=== PATIENT | female | born 1985 | race Caucasian/White ===

== ENCOUNTER 2018-04-24 19:25 | Emergency (ER) | payer OTHER ==
[~2018-04-24] VITALS: Ht 170.2 cm; Wt 106.6 kg
[2018-04-24 19:25] VITALS: BP 136/90
[2018-04-24 21:25] LABS: BASOPHILS % (AUTO) 0.3 % (0.0-2.0); EOSINOPHILS # (AUTO) 0.1 K/uL (0-0.4); EOSINOPHILS % (AUTO) 0.6 % (0.0-4.0); HEMATOCRIT 40.5 % (36-48); HEMOGLOBIN 12.9 g/dL (12.0-16.0); LYMPHOCYTES # (AUTO) 1.2 K/uL (2.5-16.5); MEAN CORPUSCULAR HEMOGLOBIN 27 pg (27-31); MEAN CORPUSCULAR HGB CONC 32 g/dL (33-37); MEAN CORPUSCULAR VOLUME 84.5 fL (80-94); MONOCYTES # (AUTO) 0.7 K/uL (0.8-1.0); MONOCYTES % (AUTO) 6.7 % (1.7-9.3); NEUTROPHILS # (AUTO) 9.1 K/uL (1.8-7.7); NEUTROPHILS % (AUTO) 81.4 % (42.2-75.2); PLATELET COUNT (AUTO) 255 K/uL (140-450); RED BLOOD CELL COUNT(AUTO) 4.79 MIL/uL (4.20-5.40); RED CELL DISTRIBUTION WIDTH 15.8 % (11.6-13.7); WHITE BLOOD COUNT (AUTO) 11.2 K/uL (4.8-10.8)
[2018-04-24 21:25] LABS: APPEARANCE,URINE CLEAR (CLEAR); BILIRUBIN,URINE NEGATIVE (NEGATIVE); BLOOD, URINE NEGATIVE (NEGATIVE); COLOR,URINE YELLOW (YELLOW); LEUKOCYTE ESTERASE ,URINE NEGATIVE (NEGATIVE); NITRITE, URINE NEGATIVE (NEGATIVE); UGLUCOSE NEGATIVE (NEGATIVE)
[2018-04-24 21:40] LABS: ANION GAP 9.8 (8-16); CARBON DIOXIDE 29.6 mmol/L (21-32); POTASSIUM 3.4 mmol/L (3.5-5.1)
[2018-04-24 21:46] LABS: ALBUMIN 3.8 g/dL (3.4-5.0); TOTAL BILIRUBIN 0.5 mg/dL (0.0-1.0)
[2018-04-24 22:31] VITALS: BP 136/81
== END 2018-04-24 22:31 | disposition home or self-care (01) ==
LOC: MED 19:25
DX: R10.11 Right upper quadrant pain (principal); R06.02 Shortness of breath; Z88.1 Allergy status to other antibiotic agents
CPT/HCPCS: 36415; 71045; 80053; 81003; 81025; 83690; 84484; 85025; 93005; 99285; Q0092

== ENCOUNTER 2018-05-10 19:55 | Inpatient (IN) | payer OTHER ==
[~2018-05-10] VITALS: Ht 170.2 cm; Wt 104.3 kg
[2018-05-10] MEDS ORDERED: NACL 0.9% 1,000 ML IV ONE (19:56)
[2018-05-10 19:57] VITALS: BP 128/79
[2018-05-10] MEDS ORDERED: ONDANSETRON 4 MG/2 ML VIAL IVP ONE (20:00)
[2018-05-10] MEDS ORDERED: MORPHINE SULFATE 4 MG/ML SYR IVP ONE (20:00)
--- NOTE | 2018-05-10 20:02 | NUR ---
Patient ambulated to bed 2 after providing a urine specimen. RN evaluating patient at bedside.
--- NOTE | 2018-05-10 20:05 | NUR ---
33/F CAME IN ED, C/O 10/27 SHARP RUQ PAIN, RADIATING TO BACK, X2 DAYS, INTERMITTENTLY X2 WEEKS. PT CAME IN ER THIS MORNING, WAS CALLED TO COME BACK. ABD SOFT ROUND TENDER TO TOUCH. PT DENIES FEVER N/V/D, DYSURIA. PT DENIES MED HX, RX. ER MD AT BEDSIDE TO SPEAK WITH PT.
--- NOTE | 2018-05-10 20:15 | NUR ---
US TECH AT BEDSIDE
[2018-05-10 20:21] LABS: BILIRUBIN,URINE NEGATIVE (NEGATIVE); BLOOD, URINE TRACE-I (NEGATIVE); COLOR,URINE YELLOW (YELLOW); LEUKOCYTE ESTERASE ,URINE 1+ (NEGATIVE); NITRITE, URINE NEGATIVE (NEGATIVE); UGLUCOSE NEGATIVE (NEGATIVE)
[2018-05-10 20:22] LABS: APPEARANCE,URINE HAZY (CLEAR)
[2018-05-10 20:25] LABS: HEMATOCRIT 44.3 % (36-48); HEMOGLOBIN 14.4 g/dL (12.0-16.0); MEAN CORPUSCULAR HEMOGLOBIN 27 pg (27-31); MEAN CORPUSCULAR HGB CONC 32 g/dL (33-37); MEAN CORPUSCULAR VOLUME 84.1 fL (80-94); RED BLOOD CELL COUNT(AUTO) 5.27 MIL/uL (4.20-5.40)
[2018-05-10 20:25] LABS: RBC,URINE 0-5 (RARE) /HPF (0-5); WBC,URINE 6-15 (FEW) /HPF (0-5)
[2018-05-10 20:26] LABS: PLATELET COUNT (AUTO) 306 K/uL (140-450); RED CELL DISTRIBUTION WIDTH 14.3 % (11.6-13.7)
[2018-05-10 20:28] LABS: BASOPHILS # (AUTO) 0.3 K/uL (0.00-0.22); EOSINOPHILS # (AUTO) 0.1 K/uL (0-0.4); MONOCYTES # (AUTO) 0.8 K/uL (0.8-1.0); NEUTROPHILS # (AUTO) 4.8 K/uL (1.8-7.7)
[2018-05-10 20:33] LABS: ALBUMIN 4.4 g/dL (3.4-5.0); ANION GAP 12.7 (8-16); CARBON DIOXIDE 28.9 mmol/L (21-32); CREATININE 1.1 mg/dL (0.6-1.3); POTASSIUM 3.6 mmol/L (3.5-5.1); TOTAL BILIRUBIN 0.3 mg/dL (0.0-1.0)
--- NOTE | 2018-05-10 21:12 | NUR ---
PT RESTING IN BED COMFORTABLY, DENIES PAIN OR NAUSEA AT THIS TIME, ALL NEEDS MET.
--- NOTE | 2018-05-10 22:04 | NUR ---
PT RESTING IN BED COMFORTABLY, DENIES PAIN OR NAUSEA AT THIS TIME, ALL NEEDS MET. ER MD AT BEDSIDE TO SPEAK WITH PT.
[2018-05-10] MEDS ORDERED: cefTRIAXone 1,000 MG VIAL ONE (22:14)
[2018-05-10] MEDS ORDERED: ONDANSETRON 4 MG/2 ML VIAL IVP PRN (22:20)
[2018-05-10] MEDS ORDERED: MORPHINE SULFATE 4 MG/ML SYR IVP PRN (22:20)
--- NOTE | 2018-05-10 22:20 | NUR ---
BEHAVIORAL PEDIATRICIAN ON THE WAY TO DRAW BLOOD CULTURES, WILL ADMINISTER ABX AFTER
--- NOTE | 2018-05-10 22:42 | NUR ---
PT ARRIVED ON UNIT VIA WHEELCHAIR WITH ONE ER NURSE. PT IN STABLE CONDITION. PT ACCOMPANIED BY FAMILY MEMBER. PT HAS L AC 20G IV. IV IS PATENT AND INTACT. PT IS ON RA. SKIN IS INTACT. PT HAS NO C/O PAIN AT THIS TIME. ORIENTATED PT TO ROOM AND CALL LIGHT USE. BED IS LOCKED, LOWEST POSITION AND SIDE RAILS UP X2. BOARD UPDATED. WILL CONTINUE TO MONITOR PT.
[2018-05-10 22:52] LABS: PROTHROMBIN TIME 10.6 secs (10.8-13.4)
--- NOTE | 2018-05-10 23:10 | NUR ---
Patient will be admitted to care of DR. MILLER. Admited to [facility]. Will go to room 112B. Belongings list completed. Report to ROSENDO MENDOZA AT BEDSIDE.
[2018-05-10] MEDS: NACL 0.9% 1,000 ML IV SCH (23:20)
--- NOTE | 2018-05-10 23:20 | NUR ---
BEGAN IV FLUIDS AT 100ML/HR. PT TOLERATING WELL. WILL CONTINUE TO MONITOR.
[2018-05-11] VITALS: BP 122/79
--- NOTE | 2018-05-11 01:08 | NUR ---
PT IS RESTING COMFORTABLY IN BED. NO C/O OF PAIN. WILL CONTINUE TO MONITOR.
--- NOTE | 2018-05-11 03:09 | NUR ---
PT SLEEPING IN BED. NO S/SX OF DISTRESS. WILL CONTINUE TO MONITOR.
[2018-05-11] MEDS ORDERED: PIPERACILLIN/TAZOBACTAM 3.375 GM VIAL IV ONE (04:35)
--- NOTE | 2018-05-11 04:41 | NUR ---
ADMINISTERED SCHEDULED ABX. PT TOLERATING WELL. ALL NEEDS ARE MET AT THIS TIME. WILL CONTINUE TO MONITOR.
[2018-05-11] MEDS ORDERED: PIPERACILLIN/TAZOBACTAM 3.375 GM in DEXTROSE 5% 50 ML IV SCH (05:00)
--- NOTE | 2018-05-11 07:20 | NUR ---
ENDORSED PT TO DAY SHIFT NURSE FOR CONTINUITY OF CARE. PT IN STABLE CONDITION.
--- NOTE | 2018-05-11 07:21 | NUR ---
RECEIVED REPORT FROM PM NURSE. PT LYING ON HER BED. DENIES ANY PAIN. IV OF LFT AC 20G. IVF INFUSING @100 ML/HR. CALL LIGHT WITHIN REACH. NO SIGN OF DISTRESS. WILL CONTINUE TO MONITOR PT.
[2018-05-11 07:44] LABS: HEMATOCRIT 37.8 % (36-48); HEMOGLOBIN 12.5 g/dL (12.0-16.0); RED BLOOD CELL COUNT(AUTO) 4.49 MIL/uL (4.20-5.40); WHITE BLOOD COUNT (AUTO) 5.5 K/uL (4.8-10.8)
[2018-05-11 07:45] LABS: EOSINOPHILS % (AUTO) 1.7 % (0.0-4.0); LYMPHOCYTES % (AUTO) 38.6 % (20.5-51.1); MEAN CORPUSCULAR HEMOGLOBIN 28 pg (27-31); MEAN CORPUSCULAR HGB CONC 33 g/dL (33-37); MEAN CORPUSCULAR VOLUME 84.2 fL (80-94); MONOCYTES % (AUTO) 9.7 % (1.7-9.3); PLATELET COUNT (AUTO) 226 K/uL (140-450); RED CELL DISTRIBUTION WIDTH 14.5 % (11.6-13.7)
[2018-05-11 07:57] LABS: ALBUMIN 3.3 g/dL (3.4-5.0); ANION GAP 12.1 (8-16); CARBON DIOXIDE 24.9 mmol/L (21-32); CREATININE 0.9 mg/dL (0.6-1.3); TOTAL BILIRUBIN 0.4 mg/dL (0.0-1.0)
[2018-05-11 08:00] VITALS: BP 113/80
--- NOTE | 2018-05-11 08:12 | NUR ---
PATIENT HAS BEEN SCREENED AND CATEGORIZED MODERATE NUTRITION RISK. PATIENT WILL BE SEEN WITHIN 3-5 DAYS OF ADMISSION. 05/13/18 05/15/[address]
--- NOTE | 2018-05-11 09:30 | NUR ---
CHECKED ON PT. PT LYING ON BED. PT ASKING FORE BREAST PUMP AND GOWN. CHARGE NURSE INFORMED. WILL CALL FOR THE BREAST PUMP. NO SIGN OF DISTRESS. WILL CONTINUE TO MONITOR PT.
--- NOTE | 2018-05-11 11:00 | NUR ---
CHECKED ON PT. PT ASKING ABOUT HER X-RAY REPORT . INFORMED ABOUT HER TEST RESULT. NO SIGN OF DISTRESS. WANTED TO KNOW IF SHE WILL HAVE ANY PROCEDURE TODAY. INFORMED THAT WILL NOTIFY HER IF ORDERS ARE OBTAINED. VERBALIZED UNDERSTANDING. WILL CONTINUE TO MONITOR PT.
--- NOTE | 2018-05-11 13:00 | NUR ---
ADMINISTERED ZOSYN TO PT. TOLERATED WELL. CHANGED THE IVF BAG TOO. NO SIGN OF DISTRESS. WILL CONTINUE TO MONITOR PT.
[2018-05-11] MEDS: PIPER/TAZO 3.375GM/D5W PREMIX 50 ML IV SCH ×2 (13:01→21:42)
[2018-05-11] MEDS: NACL 0.9% 1,000 ML IV SCH ×2 (13:01→18:19)
--- NOTE | 2018-05-11 14:46 | NUR ---
Initial Clinical review faxed to [facility] at [phone]
[2018-05-11 16:00] VITALS: BP 115/76
--- NOTE | 2018-05-11 16:00 | NUR ---
OBTAINED CONSENT FROM PT FOR POSSIBLE OPEN CHOLECYSTECTOMY. INFORMED THAT SHE MIGHT HAVE PROCEDURE TOMORROW MORNING. WILL BE NPO FROM [facility]. VERBALISED UNDERSTANDING. WILL CONTINUE TO MONITOR PT.
--- NOTE | 2018-05-11 19:35 | NUR ---
ENDORSED PT TO PM NURSE. PT IN STABLE CONDITION.
--- NOTE | 2018-05-11 19:35 | NUR ---
RECEIVED REPORT FORM DAY SHIFT NURSE. AAOX4. NO C/O PAIN. NO RESP DISTRESS NOTED. IV TO LEFT AC #20G, NS AT100 ML/HR INFUSING WELL. DISCUSSED PLAN OF CARE, PT VERBALIZED UNDERSTANDING. CALL LIGHT WITHIN REACH.
--- NOTE | 2018-05-11 21:15 | NUR ---
PT LYING IN BED. NO C/O PAIN. NO RESP DISTRESS NOTED.
[2018-05-11] MEDS: ACETAMINOPHEN 325 MG TAB PO PRN (21:50)
[2018-05-12] VITALS: BP 110/70
--- NOTE | 2018-05-12 | NUR ---
PT IN BED, AWAKE. DENIES PAIN. ALL NEEDS MET AT THIS TIME. CALL LIGHT WITHIN REACH.
--- NOTE | 2018-05-12 02:50 | NUR ---
PT SLEEPING BUT EASILY WAKES UP. NO S/S OF PAIN. NO S/S OF RESP DISTRESS NOTED. CALL LIGHT WITHIN REACH.
[2018-05-12] MEDS: NACL 0.9% 1,000 ML IV SCH ×2 (04:19→23:50)
--- NOTE | 2018-05-12 05:15 | NUR ---
PT SLEEPING BUT AROUSABLE. NO DISTRESS NOTED.
[2018-05-12] MEDS: PIPER/TAZO 3.375GM/D5W PREMIX 50 ML IV SCH ×3 (05:36→20:12)
--- NOTE | 2018-05-12 07:15 | NUR ---
ENDORSED PT TO DAY SHIFT NURSE. PT IN STABLE CONDITION.
--- NOTE | 2018-05-12 07:20 | NUR ---
RECEIVED REPORT FROM UTILITY INSPECTOR RN. PATIENT IS SLEEPING AT THIS TIME BUT EASILY AWAKENS BY NAME CALLING. HAS NO SIGNS AND SYMPTOMS OF ACUTE DISTRESS NOTED AT THIS TIME. HAS IV TO THE LEFT AC 20G INFUSING NS AT 100 ML/HR. SITE IS CLEAN, DRY, PATENT AND INTACT. DISCUSSED PLAN OF CARE WITH PATIENT AND SHE VERBALIZED UNDERSTANDING. BED IN LOWEST POSITION, SIDE RAILS UP X2, CALL LIGHT PLACED WITHIN REACH. WILL CONTINUE TO MONITOR.
[2018-05-12 08:00] VITALS: BP 110/70
--- NOTE | 2018-05-12 09:40 | NUR ---
PATIENT TAKEN TO OR. IN STABLE CONDITION.
[2018-05-12 10:16] LABS: WHITE BLOOD COUNT (AUTO) 5.4 K/uL (4.8-10.8)
[2018-05-12 10:17] LABS: BASOPHILS % (AUTO) 4.6 % (0.0-2.0); EOSINOPHILS % (AUTO) 1.2 % (0.0-4.0); HEMATOCRIT 39.3 % (36-48); LYMPHOCYTES % (AUTO) 30.7 % (20.5-51.1); MEAN CORPUSCULAR HEMOGLOBIN 28 pg (27-31); MEAN CORPUSCULAR HGB CONC 33 g/dL (33-37); MEAN CORPUSCULAR VOLUME 83.7 fL (80-94); MONOCYTES % (AUTO) 7.7 % (1.7-9.3); NEUTROPHILS % (AUTO) 55.8 % (42.2-75.2); PLATELET COUNT (AUTO) 250 K/uL (140-450); RED BLOOD CELL COUNT(AUTO) 4.69 MIL/uL (4.20-5.40)
[2018-05-12] MEDS ORDERED: SUCCINYLCHOLINE CHLORIDE 200 MG/10 ML VIAL IVP ONE (10:28)
[2018-05-12] MEDS ORDERED: SEVOFLURANE 250 ML BTL INH ONE (10:28)
[2018-05-12] MEDS ORDERED: ONDANSETRON 4 MG/2 ML VIAL ONE (10:28)
[2018-05-12] MEDS ORDERED: PROPOFOL 200 MG/20 ML VIAL IV ONE (10:28)
[2018-05-12] MEDS ORDERED: DEXAMETHASONE 4 MG/ML VIAL ONE (10:28)
[2018-05-12] MEDS ORDERED: LIDOCAINE 2% 100 MG/5 ML SYR IVP ONE (10:28)
[2018-05-12] MEDS ORDERED: NEOSTIGMINE 1:1000 10 MG/10 ML VIAL ONE (10:28)
[2018-05-12] MEDS ORDERED: ePHEDrine 50 MG/ML VIAL ONE (10:28)
[2018-05-12] MEDS ORDERED: KETOROLAC 30 MG/ML VIAL ONE (10:28)
[2018-05-12] MEDS ORDERED: GLYCOPYRROLATE 0.2 MG/ML VIAL ONE (10:28)
[2018-05-12] MEDS ORDERED: ROCURONIUM 50 MG/5 ML VIAL IV ONE (10:28)
[2018-05-12] MEDS ORDERED: MIDAZOLAM 2 MG/2 ML VIAL ONE (10:33)
[2018-05-12] MEDS ORDERED: fentaNYL 0.05 MG/ML VIAL ONE (10:34)
[2018-05-12 10:38] LABS: CARBON DIOXIDE 27.9 mmol/L (21-32); CREATININE 0.9 mg/dL (0.6-1.3); POTASSIUM 3.9 mmol/L (3.5-5.1)
[2018-05-12 10:43] LABS: ALBUMIN 3.7 g/dL (3.4-5.0); TOTAL BILIRUBIN 0.7 mg/dL (0.0-1.0)
[2018-05-12] MEDS ORDERED: BUPIVACAINE-MPF 0.25% 30 ML VIAL INJ ONE (10:43)
[2018-05-12] MEDS ORDERED: ONDANSETRON 4 MG/2 ML VIAL IVP PRN (11:05)
[2018-05-12] MEDS ORDERED: HYDROmorphone 1 MG/ML AMP IVP PRN (11:05)
[2018-05-12] MEDS: HYDROmorphone PFS 2 MG/ML SYR ONE ×2 (12:14→12:24)
--- NOTE | 2018-05-12 12:50 | NUR ---
PATIENT IS BACK FROM SURGERY. RECEIVED REPORT FROM HEIDE ROBBINS. PATIENT IS IN STABLE CONDITION. VITAL SIGNS ARE STABLE. HAS X4 ABDOMINAL INCISIONS THAT ARE COVERED WITH BANDAIDS. WILL CONTINUE TO MONITOR.
--- NOTE | 2018-05-12 13:34 | NUR ---
Clinical review faxed to [facility] at [phone]
[2018-05-12] MEDS: MORPHINE SULFATE 2 MG/ML SYR IVP PRN ×2 (14:34→20:27)
--- NOTE | 2018-05-12 14:40 | NUR ---
PATIENT COMPLAINING OF 6/10 PAIN. ADMINISTERED PAIN MEDICATION. PATIENT IS STABLE AT THIS TIME.
[2018-05-12 16:00] VITALS: BP 127/80
--- NOTE | 2018-05-12 19:25 | NUR ---
ENDORSED PATIENT TO AIR EXPORT LOGISTICS MANAGER RN FOR CONTINUITY OF CARE. PATIENT IN STABLE CONDITION.
--- NOTE | 2018-05-12 19:27 | NUR ---
RECEIVED PATIENT AWAKE LYING IN SEMI-FOWLERS POSITION. PATIENT WAS AA0X4, AMBULATORY. BED IN LOW POSITION. EXPLAINED THE PLAN OF CARE AND VERBALIZED UNDERSTANDING. CALL LIGHT WITHIN REACH. WILL CONTINUE TO MONITOR.
--- NOTE | 2018-05-12 21:10 | NUR ---
MEDICATION GIVEN AND TOLERATED WELL. SNACK GIVEN TO PATIENT. PATIENT COMPLAINING ABOUT HER ROOMMATE THAT IS LOUD.
[2018-05-13] VITALS: BP 114/74
--- NOTE | 2018-05-13 | NUR ---
V/S TAKEN AND RECORDED. V/S WNL. BED IN LOW POSITION. CALL LIGHT WITHIN REACH. ALL NEEDS ATTENDED. NO S/S OF DISTRESS NOTED AT THIS TIME.
[2018-05-13] MEDS: NACL 0.9% 1,000 ML IV SCH ×2 (00:19→09:47)
--- NOTE | 2018-05-13 02:00 | NUR ---
SEEN PATIENT ASLEEP. NO COMPLAIN OF PAIN AT THIS TIME. CALL LIGHT WITHIN REACH. WILL CONTINUE TO MONITOR.
--- NOTE | 2018-05-13 04:00 | NUR ---
SEEN PATIENT ASLEEP ON BED WITH CALL LIGHT WITHIN REACH. BED IN LOW POSITION. WILL CONTINUE TO MONITOR.
--- NOTE | 2018-05-13 04:12 | NUR ---
MEDICATION GIVEN. PATIENT SLEEPING AT THIS TIME. CALL LIGHT WITHIN REACH.
[2018-05-13] MEDS: PIPER/TAZO 3.375GM/D5W PREMIX 50 ML IV SCH ×2 (04:13→13:06)
[2018-05-13] MEDS: MORPHINE SULFATE 2 MG/ML SYR IVP PRN ×2 (05:47→09:47)
[2018-05-13 06:03] LABS: BASOPHILS % (AUTO) 0.1 % (0.0-2.0); EOSINOPHILS % (AUTO) 0.1 % (0.0-4.0); HEMATOCRIT 36.4 % (36-48); HEMOGLOBIN 11.9 g/dL (12.0-16.0); LYMPHOCYTES # (AUTO) 1.6 K/uL (2.5-16.5); LYMPHOCYTES % (AUTO) 18.8 % (20.5-51.1); MEAN CORPUSCULAR HEMOGLOBIN 28 pg (27-31); MEAN CORPUSCULAR HGB CONC 33 g/dL (33-37); MEAN CORPUSCULAR VOLUME 84.2 fL (80-94); MONOCYTES # (AUTO) 0.8 K/uL (0.8-1.0); MONOCYTES % (AUTO) 8.8 % (1.7-9.3); NEUTROPHILS # (AUTO) 6.2 K/uL (1.8-7.7); NEUTROPHILS % (AUTO) 72.2 % (42.2-75.2); PLATELET COUNT (AUTO) 246 K/uL (140-450); RED BLOOD CELL COUNT(AUTO) 4.32 MIL/uL (4.20-5.40); RED CELL DISTRIBUTION WIDTH 15.3 % (11.6-13.7); WHITE BLOOD COUNT (AUTO) 8.6 K/uL (4.8-10.8)
[2018-05-13 06:47] LABS: ALBUMIN 3.2 g/dL (3.4-5.0); ANION GAP 7.1 (8-16); CARBON DIOXIDE 25.2 mmol/L (21-32); POTASSIUM 3.3 mmol/L (3.5-5.1); TOTAL BILIRUBIN 0.5 mg/dL (0.0-1.0)
[2018-05-13 06:49] LABS: PROTHROMBIN TIME 11.9 secs (10.8-13.4)
[2018-05-13 06:57] LABS: MAGNESIUM 1.8 mg/dL (1.8-2.4); THYROID STIMULATING HORMONE 0.86 uIU/mL (0.34-3.74)
--- NOTE | 2018-05-13 07:10 | NUR ---
ENDORSEMENT GIVEN TO AM SHIFT NURSE AT BEDSIDE FOR CONTINUITY OF CARE. PATIENT IN STABLE CONDITION.
--- NOTE | 2018-05-13 07:10 | NUR ---
RECEIVED BEDSIDE REPORT FROM MATRIX SUPERVISOR NURSE TYLER, PT IN BED RESTING, NO SIGNS OF DISTRESS, ON RA, ALERT AND ABLE TO MAKE NEEDS KNOWN. IV IN L AC INFUSING NACL AT 100ML/HR DRESSING INTACT AND SECURED, V/S TAKEN ALL WITHIN PTS BASELINE, PT REQUESTED MORPHINE FOR PAIN, WILL MEDICATE ACCORDING TO DRS ORDER, UPDATED BOARD, EXPLAINED PLAN OF CARE. CALL LIGHT WITHIN REACH.
[2018-05-13 08:00] VITALS: BP 126/72
--- NOTE | 2018-05-13 09:30 | NUR ---
WILL GIVE DUE MEDICATIONS, PT IN BED, CALL LIGHT WITHIN REACH, WILL CONTINUE TO MONITOR.
--- NOTE | 2018-05-13 11:04 | NUR ---
CM NOTE Clinical review faxed to [facility] at [phone] JUAN PABLO # [phone]
--- NOTE | 2018-05-13 11:42 | NUR ---
PAGED DR GONZALEZ REGARDING PTS K 3.3. WILL FOLLOW WITH MD ORDERS ONCE RECEIVED.
--- NOTE | 2018-05-13 11:45 | NUR ---
PT AMBULATED ONCE AROUND UNIT, PT TOLERATED WELL, NO PAIN WHILE AMBULATING. PT STATED WILL WALK AGAIN IN A WHILE. WILL CONTINUE TO MONITOR.
--- NOTE | 2018-05-13 12:00 | NUR ---
CALL BACK FROM DR GONZALEZ. ORDER FOR K: 40 MEQ PO ONCE. WILL PUT IN ORDER AND GIVE ACCORDING TO MD ORDER.
--- NOTE | 2018-05-13 12:19 | NUR ---
CALLED DIETARY SPOKE WITH GRISELDA ASKING IF ITS POSSIBLE TO CHANGE LUNCH FOR SOMETHING ELSE. PT STATES DOES NOT LIKE FISH. WILL GIVE NEW TRAY ONCE ARRIVED ON UNIT.
[2018-05-13] MEDS ORDERED: POTASSIUM CHLORIDE 10 MEQ TABER PO SCH (12:30)
--- NOTE | 2018-05-13 13:23 | NUR ---
PT ASKED WHEN SHE CAN CONTINUE BREAST FEEDING SINCE SHE IS RECEIVING MORPHINE AND ZOSYN. CALLED PHARMACY SPOKE WITH ANGEL. SHE STATED TO LET DR KNOW REGARDING PTS QUESTION SINCE THESE MEDICATIONS ARE EXCRETED IN BREAST MILK. WILL CONSULT WITH MD REGARDING PTS QUESTION.
--- NOTE | 2018-05-13 13:36 | NUR ---
05/13/18 RD INITIAL ASSESSMENT COMPLETED PLEASE REFER TO NUTRITION ASSESSMENT UNDER CARE ACTIVITY FOR ESTIMATED NUTRITIONAL NEEDS. 1. CONTINUE CARDIAC DIET TOLERATED 2. LOW FAT DIET EDUCATION WAS PROVIDED TO PT 3. RD TO FOLLOW-UP 3-5 DAYS, MODERATE RISK GRISELDA HOOVER RD
--- NOTE | 2018-05-13 15:01 | NUR ---
PAGED DR BOOTHE, SPOKE WITH KARLY, LEFT MESSAGE.
--- NOTE | 2018-05-13 15:10 | NUR ---
PT RESTING IN BED REQUESTED TO CALL WHEN D/C PAPERWORK WILL BE READY, CALLED AND GAVE ESTIMATED TIME PT WILL LEAVE. PT STATED "THANK YOU"
[2018-05-13 15:32] VITALS: BP 126/72
[2018-05-13 16:00] VITALS: BP 129/77
[2018-05-13] MEDS: ACETAMINOPHEN 325 MG TAB PO PRN (16:42)
--- NOTE | 2018-05-13 17:15 | NUR ---
PT SIGNED ALL D/C PAPERWORK AND PLACED IN CHART, REMOVED PTS ARM BANDS, D/C IV IN LEFT AC, CATH INTACT APPLIED BANDAGE, PT LEFT VIA WC ALONG WITH PT STABLE.
== END 2018-05-13 17:17 | disposition home or self-care (01) | DRG 263 ==
LOC: MED 19:55 → MTU 22:26
PROVIDERS: ADMIT Internal Medicine Pulmonary Disease; ATTEND Internal Medicine Pulmonary Disease
PROC: BF131ZZ Fluoroscopy of Gallbladder and Bile Ducts using Low Osmolar Contrast (ICD-10-PCS; 2018-05-12)
PROC: 0FT44ZZ Resection of Gallbladder, Percutaneous Endoscopic Approach (ICD-10-PCS; principal; 2018-05-12 11:05)
DX: K80.12 Calculus of gallbladder with acute and chronic cholecystitis without obstruction (principal); K83.8 Other specified diseases of biliary tract; N39.0 Urinary tract infection, site not specified; E66.9 Obesity, unspecified; Z88.1 Allergy status to other antibiotic agents; Z68.36 Body mass index [BMI] 36.0-36.9, adult
CPT/HCPCS: 36415; 74150; 76705; 80053; 81001; 81025; 82140; 82150; 82374; 83605; 83690; 83735; 83880; 84436; 84443; 84703; 85025; 85610; 85730; 86886; 86900; 86901; 87040; 87081; 96374; 99285; C1887; J0330; J0696; J1100; J1170; J1885; J2001; J2250; J2270; J2405; J2543; J2704; J2710; J3010; J3490; J7030; J7060; Q0092